=== PATIENT | male | born 1990 | race Caucasian/White ===

== ENCOUNTER 2021-03-04 14:22 | Emergency (ER) | payer OTHER, SELFPAY ==
[2021-03-04 17:23] LABS: Basophils # (Auto) 0.2 K/mm3 (0.0-0.1); Basophils % (Auto) 1.9 % (0.0-1.8); Eosinophils # (Auto) 0.1 K/mm3 (0.0-0.4); Eosinophils % (Auto) 0.7 % (0.0-4.3); Hematocrit 46.9 % (35.5-45.6); Hemoglobin 16.1 gm/dl (11.8-15.2); Lymphocytes # (Auto) 1.4 K/mm3 (1.2-5.4); Lymphocytes % (Auto) 15.7 % (13.4-35.0); Mean Corpuscular HGB Conc 34 % (32-34); Mean Corpuscular Volume 91 fl (84-94); Monocytes # (Auto) 0.5 K/mm3 (0.0-0.8); Monocytes % (Auto) 6.1 % (0.0-7.3); Platelet Count 208 K/mm3 (140-440); Red Blood Count 5.14 M/mm3 (3.65-5.03); Red Cell Distribution Width 14.3 % (13.2-15.2)
[2021-03-04 17:30] LABS: Bilirubin,Urine NEG (Negative); Blood,Urine NEG (Negative); Color,Urine Amber (Yellow); Mucus,Urine 3+ /HPF; Protein,Urine <15 mg/dL mg/dL (Negative)
[2021-03-04 17:31] LABS: Amphetamine Screen,Urine Negative; Cocaine Screen,Urine Negative; Methadone Screen,Urine Negative; Opiate Screen,Urine Negative
[2021-03-04 17:42] LABS: Alanine Aminotransferase 14 units/L (7-56); Albumin 3.9 g/dL (3.9-5); BUN/Creatinine Ratio 15; Blood Urea Nitrogen 15 mg/dL (9-20); Calcium 8.7 mg/dL (8.4-10.2); Hemolysis Index 13
[2021-03-04 17:43] LABS: Benzodiazepines Screen,Urine Negative; Cannabinoid Screen,Urine Positive
--- NOTE | 2021-03-04 23:19 | Event Note ---
ED Screening Note ED Screening Note: AGITATED IN [facility]ING STATES MOM AND SISTER KILLED TODAY HE LEFT ER TO SEE DAUGHTER This initial assessment/diagnostic orders/clinical plan/treatment(s) is/are subject to change based on patients health status, clinical progression and re- assessment by fellow clinical providers in the ED. Further treatment and workup at subsequent clinical providers discretion. Patient/guardian urged not to elope from the ED as their condition may be serious if not clinically assessed and managed. Initial orders include: 1013 E
--- NOTE | 2021-03-05 01:47 | Emergency Department Report ---
HPI - HPI HPI: Room 4 The patient is a 30-year-old male present with a chief complaint of suicidal ideation. The patient states she is felt suicidal for the past 2 days. Patient states there are 2 recent deaths in his family. Patient also states for the past 2 months he has had auditory hallucinations with voices telling him to do things such as sitting in the middle of her [place] to be hit by a bus. The patient states he did attempt to do this but was cussed out by his sister. The patient states approximately 3 nights ago intentionally overdosed on 12 Tylenol (dosage unknown) and two "Percocet tens." Patient now only complains of a headache and hunger <EDITH CORDOVA - Last Filed: 03/05/21 04:03> <JESSIE TATUM - Last Filed: 03/05/21 13:04> - General Chief Complaint: Psych Time Seen by Provider: 03/04/21 23:18 ED Past Medical Hx - Past Medical History Previous Medical History?: No Hx Psychiatric Treatment: Yes (Depression) - Surgical History Past Surgical History?: No - Family History Family history: no significant - Social History Smoking Status: Current Every Day Smoker (1/2 pack/day) Substance Use Type: Alcohol (Occasional), Marijuana <EDITH CORDOVA - Last Filed: 03/05/21 04:03> <JESSIE TATUM - Last Filed: 03/05/21 13:04> - Medications Home Medications: Home Medications Medication Instructions Recorded Confirmed Last Taken Type ARIPiprazole [Abilify TAB] 2 mg PO DAILY #30 tab 03/05/21 Unknown Rx ED Review of Systems ROS: Stated complaint: SI Other details as noted in HPI Constitutional: no symptoms reported Eyes: denies: eye pain ENT: denies: throat pain Respiratory: no symptoms reported Cardiovascular: denies: chest pain Endocrine: no symptoms reported Gastrointestinal: other (Hunger). denies: abdominal pain Genitourinary: denies: dysuria Musculoskeletal: denies: back pain Neurological: headache Psychiatric: auditory hallucinations, suicidal thoughts <EDITH CORDOVA - Last Filed: 03/05/21 04:03> ROS: Stated complaint: SI Other details as noted in HPI <JESSIE TATUM - Last Filed: 03/05/21 13:04> Physical Exam - Physical Exam Vital Signs: Vital Signs 03/04/21 16:05 Temperature 98.3 F Pulse Rate 51 L Respiratory 18 Rate Blood Pressure 117/76 [Right] O2 Sat by Pulse 100 Oximetry Physical Exam: GENERAL: The patient is well-developed well-nourished male lying on stretcher not appearing to be in acute distress. [] HEENT: Normocephalic. Atraumatic. Extraocular motions are intact. Patient has moist mucous membranes. NECK: Supple. Trachea midline CHEST/LUNGS: Clear to auscultation. There is no respiratory distress noted. HEART/CARDIOVASCULAR: Regular. There is no tachycardia. There is no gallop rub or murmur. ABDOMEN: Abdomen is soft, nontender. Patient has normal bowel sounds. There is no abdominal distention. SKIN: There is no rash. There is no edema. There is no diaphoresis. NEURO: The patient is awake, alert, and oriented. The patient is cooperative. The patient has no focal neurologic deficits. The patient has normal speech MUSCULOSKELETAL: There is no evidence of acute injury. <EDITH CORDOVA - Last Filed: 03/05/21 04:03> - Physical Exam Vital Signs: Vital Signs 03/04/21 03/05/21 03/05/21 16:05 01:53 05:53 Temperature 98.3 F Pulse Rate 51 L 52 L Respiratory 18 18 16 Rate Blood Pressure 117/76 108/62 [Right] O2 Sat by Pulse 100 100 97 Oximetry <JESSIE TATUM - Last Filed: 03/05/21 13:04> ED Course Vital Signs 03/04/21 16:05 Temperature 98.3 F Pulse Rate 51 L Respiratory 18 Rate Blood Pressure 117/76 [Right] O2 Sat by Pulse 100 Oximetry - Consultations Consultation #1: 03/05/21 01:46 Poison control called 03/05/21 01:52 Case discussed with poison control- may be cleared from tox standpoint on Tylenol overdose <EDITH CORDOVA - Last Filed: 03/05/21 04:03> Vital Signs 03/04/21 03/05/21 03/05/21 16:05 01:53 05:53 Temperature 98.3 F Pulse Rate 51 L 52 L Respiratory 18 18 16 Rate Blood Pressure 117/76 108/62 [Right] O2 Sat by Pulse 100 100 97 Oximetry - Reevaluation(s) Reevaluation #1: 03/05/21 13:02 Psychiatric Consult Note Patient Name: HAN DENIS Date of : 88 Patient Status: Emergency Emergency Provider: EDITH CORDOVA Date: 03/05/21 11:32 Initialization Date: 03/05/21 11:32 History of Present Illness - Reason for Consult Consult date: 03/05/21 Reason for consult: SI - History of Present Psychiatric Illness Per ER Note: The patient is a 30-year-old male present with a chief complaint of suicidal ideation. The patient states he is felt suicidal for the past 2 days. Patient states there are 2 recent deaths in his family. Patient also states for the past 2 months he has had auditory hallucinations with voices telling him to do things such as sitting in the middle of her [place] to be hit by a bus. The patient states he did attempt to do this but was cussed out by his sister. The patient states approximately 3 nights ago intentionally overdosed on 12 Tylenol (dosage unknown) and two "Percocet tens." Patient now only complains of a headache and hunger. Han Denis is a 30y/o male patient who presented to the ER for suicidal ideation. He is calm, cooperative. He is lucid. The patient states to me that he has been feeling suicidal "all my life." He says "since I was about 25 years old." He denies then being any worse today. He says he was and lost his Mother and his niece. The patient says he has three children. The patient says he hears things where "I think I'm tripping." He was unable to tell the nature of the hallucinations. The patient says he was diagnosed with depression and schizophrenia. He denies being on any psych meds. He says he does "some percs, weed and alcohol." He says he took several tylenols the other day but his urine screen does not show this. The patient describes his mood as "okay." He says he's "trying to get back to [place] and trying to get his money up to go back." The patient states, "I stay sleep cause I'm trying to sleep it off." PAST PSYCHIATRIC HISTORY: Diagnoses: Depression, schizophrenia Suicide attempts or Self-harm behavior: Denies Prior psychiatric hospitalizations: Yes Substance Abuse history: "percs and weed" Previous psychiatric medications tried: Denies Outpatient treatment: Denies PAST MEDICAL HISTORY: None reported Family Psychiatric History: None reported or documented SOCIAL HISTORY Marital Status: Living Arrangements: was living in a correction Employment Status: Unemployed Access to guns/weapons: Denies Education: Some high school History of Abuse: None reported Legal History: None reported REVIEW OF SYSTEMS Constitutional: Negative for weight loss ENT: Negative for stridor Respiratory: Negative for cough or hemoptysis All other systems reviewed and are negative MENTAL STATUS EXAMINATION General Appearance and Behavior: Age appropriate, good hygiene, wearing appropriate clothes, good eye contact, calm, cooperative Cooperation: cooperative, engaging Psychomotor Behavior: Psychomotor normal Mood: "okay" Affect and affective range: congruent with stated mood Thought Process: goal directed Thought Content: Speech: increased tone and pace Suicidal Ideation: yes, "since he's been about 25" Homicidal Ideation: Denies Impulse Control: Unimpaired Insight and Judgment: Limited insight and judgment Memory: Normal Attention: Undivided attention impaired Orientation: a/o x 3 Assessment and Plan (1) Hx of Schizophrenia Current Visit: Yes Status: Acute Treatment Plan d/c 1013 Start Abilify 2mg po daily Sitter: Defer to primary Medical: Per primary Disposition: Do not recommend acute psychiatric inpatient treatment. The patient understands that if suicidal thoughts gets worse he is to seek immediate assistance including 911/ER or crisis hotline The greenskeeper head is to give the patient's resources outpatient psych, for med management, CBT, shelters. The patient is to follow up with outpatient psych in 7 to 14 days upon discharge Lanolin Plant Operator is to further discuss safety plan with the patient. Will sign off. Thank you for this consult. Case staffed with Dr. Power Reevaluation #2: 03/05/21 13:02 Patient is a 30-year-old gentleman who states that he has had suicidal thoughts for multiple years. States he is no worse than normal. He is been seen by her mental health team and has been medically cleared. Patient given prescriptions for his depression and discharged home. <JESSIE TATUM - Last Filed: 03/05/21 13:04> ED Medical Decision Making - Lab Data Result diagrams: 03/04/21 16:56 03/04/21 16:56 Laboratory Tests 03/04/21 03/04/21 03/04/21 16:56 16:56 16:56 WBC 8.7 RBC 5.14 H Hgb 16.1 H Hct 46.9 H MCV 91 MCH 31 MCHC 34 RDW 14.3 Plt Count 208 Lymph % (Auto) 15.7 [place] % (Auto) 6.1 Eos % (Auto) 0.7 Baso % (Auto) 1.9 H Lymph # (Auto) 1.4 [place] # (Auto) 0.5 Eos # (Auto) 0.1 Baso # (Auto) 0.2 H Seg Neutrophils % 75.6 H Seg Neutrophils # 6.6 PT INR APTT Sodium 139 Potassium 4.3 Chloride 101.7 Carbon Dioxide 30 Anion Gap 12 BUN 15 Creatinine 1.0 Estimated GFR > 60 BUN/Creatinine Ratio 15 Glucose 88 Calcium 8.7 Total Bilirubin 0.50 AST 17 ALT 14 Alkaline Phosphatase 64 Total Protein 6.1 L Albumin 3.9 Albumin/Globulin Ratio 1.8 Urine Color Urine Turbidity Urine pH Ur Specific Ebro Urine Protein Urine Glucose (UA) Urine Ketones Urine Blood Urine Nitrite Urine Bilirubin Urine Urobilinogen Ur Leukocyte Esterase Urine WBC (Auto) Urine RBC (Auto) Urine Mucus Salicylates < 0.3 L Urine Opiates Screen Urine Methadone Screen Acetaminophen Ur Barbiturates Screen Ur Phencyclidine Scrn Ur Amphetamines Screen U Benzodiazepines Scrn Urine Cocaine Screen U Marijuana (THC) Screen Drugs of Abuse Note Plasma/Serum Alcohol 03/04/21 03/04/21 03/04/21 16:56 Unknown Unknown WBC RBC Hgb Hct MCV MCH MCHC RDW Plt Count Lymph % (Auto) [place] % (Auto) Eos % (Auto) Baso % (Auto) Lymph # (Auto) [place] # (Auto) Eos # (Auto) Baso # (Auto) Seg Neutrophils % Seg Neutrophils # PT INR APTT Sodium Potassium Chloride Carbon Dioxide Anion Gap BUN Creatinine Estimated GFR BUN/Creatinine Ratio Glucose Calcium Total Bilirubin AST ALT Alkaline Phosphatase Total Protein Albumin Albumin/Globulin Ratio Urine Color Marissa Urine Turbidity Clear Urine pH 6.0 Ur Specific Ebro 1.025 Urine Protein <15 mg/dl Urine Glucose (UA) Neg Urine Ketones Neg Urine Blood Neg Urine Nitrite Neg Urine Bilirubin Neg Urine Urobilinogen 4.0 Ur Leukocyte Esterase Neg Urine WBC (Auto) 1.0 Urine RBC (Auto) 2.0 Urine Mucus 3+ Salicylates Urine Opiates Screen Negative Urine Methadone Screen Negative Acetaminophen 5.0 L Ur Barbiturates Screen Negative Ur Phencyclidine Scrn Negative Ur Amphetamines Screen Negative U Benzodiazepines Scrn Negative Urine Cocaine Screen Negative U Marijuana (THC) Screen Positive Drugs of Abuse Note Disclamer Plasma/Serum Alcohol 03/05/21 03/05/21 01:44 02:20 WBC RBC Hgb Hct MCV MCH MCHC RDW Plt Count Lymph % (Auto) [place] % (Auto) Eos % (Auto) Baso % (Auto) Lymph # (Auto) [place] # (Auto) Eos # (Auto) Baso # (Auto) Seg Neutrophils % Seg Neutrophils # PT 16.7 H INR 1.30 H APTT 30.5 Sodium Potassium Chloride Carbon Dioxide Anion Gap BUN Creatinine Estimated GFR BUN/Creatinine Ratio Glucose Calcium Total Bilirubin AST ALT Alkaline Phosphatase Total Protein Albumin Albumin/Globulin Ratio Urine Color Urine Turbidity Urine pH Ur Specific Ebro Urine Protein Urine Glucose (UA) Urine Ketones Urine Blood Urine Nitrite Urine Bilirubin Urine Urobilinogen Ur Leukocyte Esterase Urine WBC (Auto) Urine RBC (Auto) Urine Mucus Salicylates Urine Opiates Screen Urine Methadone Screen Acetaminophen Ur Barbiturates Screen Ur Phencyclidine Scrn Ur Amphetamines Screen U Benzodiazepines Scrn Urine Cocaine Screen U Marijuana (THC) Screen Drugs of Abuse Note Plasma/Serum Alcohol < 0.01 - Differential Diagnosis Suicidal ideation <EDITH CORDOVA - Last Filed: 03/05/21 04:03> - Lab Data Result diagrams: 03/04/21 16:56 03/04/21 16:56 <JESSIE TATUM - Last Filed: 03/05/21 13:04> Critical care attestation.: If time is entered above; I have spent that time in minutes in the direct care of this critically ill patient, excluding procedure time. <EDITH CORDOVA - Last Filed: 03/05/21 04:03> Critical care attestation.: If time is entered above; I have spent that time in minutes in the direct care of this critically ill patient, excluding procedure time. <JESSIE TATUM - Last Filed: 03/05/21 13:04> ED Disposition Is pt being admited?: No Does the pt Need Aspirin: No <EDITH CORDOAV - Last Filed: 03/05/21 04:03> Time of Disposition: 13:03 <JESSIE TATUM - Last Filed: 03/05/21 13:04> Clinical Impression: Suicidal ideation, Auditory hallucinations, Passive suicidal ideations Disposition: DC-01 TO HOME OR SELFCARE Condition: Stable Additional Instructions: CRISIS RESOURCES [place] Crisis Line: Suicide Prevention Line: Emergency: 911 [facility]: Please follow up with [facility] [place] [facility] for outpatient mental health follow up: . [facility] [address] [place] [id number] If you are interested in a program, please contact [facility], or [facility] [phone] more information and to assess next steps. Regular program admission occurs Tuesday through Tuesday at 7:00 amand operates on a first come, first serve basis.Because we cant anticipate program availability in advance andprogram spots are in high demand, we recommend arriving early. Space fills up fast! [facility] from Homeless[facility] ([facility]) provides services for men experiencing homelessness and who have severe and persisted mental illness. PATH partners are [facility], [facility], and [facility]. [facility] from Homelessness ([facility]) Outreach Program assists unsheltered persons by engaging them where they are located, ensuring they access any treatment they need. Prescriptions: ARIPiprazole [Abilify TAB] 2 mg PO DAILY #30 tab Referrals: PRIMARY CARE, [Primary Care Provider] - 3-5 Days
[2021-03-05 02:13] LABS: INR 1.3 (0.87-1.13); Partial Thromboplastin Time 30.5 Sec. (24.2-36.6)
[2021-03-05 05:53] VITALS: BP 108/62
--- NOTE | 2021-03-05 11:32 | Consultation ---
History of Present Illness - Reason for Consult Consult date: 03/05/21 Reason for consult: SI - History of Present Psychiatric Illness Per ER Note: The patient is a 30-year-old male present with a chief complaint of suicidal ideation. The patient states he is felt suicidal for the past 2 days. Patient states there are 2 recent deaths in his family. Patient also states for the past 2 months he has had auditory hallucinations with voices telling him to do things such as sitting in the middle of her [place] to be hit by a bus. The patient states he did attempt to do this but was cussed out by his sister. The patient states approximately 3 nights ago intentionally overdosed on 12 Tylenol (dosage unknown) and two "Percocet tens." Patient now only complains of a headache and hunger. Han Denis is a 30y/o male patient who presented to the ER for suicidal ideation. He is calm, cooperative. He is lucid. The patient states to me that he has been feeling suicidal "all my life." He says "since I was about 25 years old." He denies then being any worse today. He says he was and lost his Mother and his niece. The patient says he has three children. The patient says he hears things where "I think I'm tripping." He was unable to tell the nature of the hallucinations. The patient says he was diagnosed with depression and schizophrenia. He denies being on any psych meds. He says he does "some percs, weed and alcohol." He says he took several tylenols the other day but his urine screen does not show this. The patient describes his mood as "okay." He says he's "trying to get back to [place] and trying to get his money up to go back." The patient states, "I stay sleep cause I'm trying to sleep it off." PAST PSYCHIATRIC HISTORY: Diagnoses: Depression, schizophrenia Suicide attempts or Self-harm behavior: Denies Prior psychiatric hospitalizations: Yes Substance Abuse history: "percs and weed" Previous psychiatric medications tried: Denies Outpatient treatment: Denies PAST MEDICAL HISTORY: None reported Family Psychiatric History: None reported or documented SOCIAL HISTORY Marital Status: Living Arrangements: was living in a halfway Employment Status: Unemployed Access to guns/weapons: Denies Education: Some high school History of Abuse: None reported Legal History: None reported REVIEW OF SYSTEMS Constitutional: Negative for weight loss ENT: Negative for stridor Respiratory: Negative for cough or hemoptysis All other systems reviewed and are negative MENTAL STATUS EXAMINATION General Appearance and Behavior: Age appropriate, good hygiene, wearing appropriate clothes, good eye contact, calm, cooperative Cooperation: cooperative, engaging Psychomotor Behavior: Psychomotor normal Mood: "okay" Affect and affective range: congruent with stated mood Thought Process: goal directed Thought Content: Speech: increased tone and pace Suicidal Ideation: yes, "since he's been about 25" Homicidal Ideation: Denies Impulse Control: Unimpaired Insight and Judgment: Limited insight and judgment Memory: Normal Attention: Undivided attention impaired Orientation: a/o x 3 Assessment and Plan (1) Hx of Schizophrenia Current Visit: Yes Status: Acute Treatment Plan d/c 1013 Start Abilify 2mg po daily Sitter: Defer to primary Medical: Per primary Disposition: Do not recommend acute psychiatric inpatient treatment. The patient understands that if suicidal thoughts gets worse he is to seek immediate assistance including 911/ER or crisis hotline The concrete stone fabricator is to give the patient's resources outpatient psych, for med management, CBT, shelters. The patient is to follow up with outpatient psych in 7 to 14 days upon discharge Adult Crossing Guard is to further discuss safety plan with the patient. Will sign off. Thank you for this consult. Case staffed with Dr. Power Medications and Allergies Allergies Allergy/AdvReac Type Severity Reaction Status Date / Time No Known Allergies Allergy Unverified 03/04/21 16:03 Home Medications Medication Instructions Recorded Confirmed Last Taken Type ARIPiprazole [Abilify TAB] 2 mg PO DAILY #30 tab 03/05/21 Unknown Rx Mental Status Exam - Vital signs Last Vital Signs Temp 98.3 F 03/04/21 16:05 Pulse 52 L 03/05/21 05:53 Resp 16 03/05/21 05:53 BP 108/62 03/05/21 05:53 Pulse Ox 97 03/05/21 05:53 Results Result Diagrams: 03/04/21 16:56 03/04/21 16:56 Abnormal lab results 03/04/21 03/04/21 03/04/21 Range/Units 16:56 16:56 16:56 RBC 5.14 H (3.65-5.03) M/mm3 Hgb 16.1 H (11.8-15.2) gm/dl Hct 46.9 H (35.5-45.6) % Baso % (Auto) 1.9 H (0.0-1.8) % Baso # (Auto) 0.2 H (0.0-0.1) K/mm3 Seg Neutrophils % 75.6 H (40.0-70.0) % PT (12.2-14.9) Sec. INR (0.87-1.13) Total Protein 6.1 L (6.3-8.2) g/dL Salicylates < 0.3 L (2.8-20.0) mg/dL Acetaminophen (10.0-30.0) ug/mL 03/04/21 03/05/21 Range/Units 16:56 01:44 RBC (3.65-5.03) M/mm3 Hgb (11.8-15.2) gm/dl Hct (35.5-45.6) % Baso % (Auto) (0.0-1.8) % Baso # (Auto) (0.0-0.1) K/mm3 Seg Neutrophils % (40.0-70.0) % PT 16.7 H (12.2-14.9) Sec. INR 1.30 H (0.87-1.13) Total Protein (6.3-8.2) g/dL Salicylates (2.8-20.0) mg/dL Acetaminophen 5.0 L (10.0-30.0) ug/mL All other labs normal.
== END 2021-03-05 13:14 | disposition home or self-care (01) ==
LOC: ED 14:22 → EEVIPCON 14:22 → ED 03-05 13:14
DX: R45.851 Suicidal ideations (principal); Z20.822 Contact with and (suspected) exposure to COVID-19; R44.0 Auditory hallucinations; R79.1 Abnormal coagulation profile; F32.9 Major depressive disorder, single episode, unspecified; F17.200 Nicotine dependence, unspecified, uncomplicated; Z72.89 Other problems related to lifestyle; Z79.899 Other long term (current) drug therapy
CPT/HCPCS: 36415; 80053; 80307; 81001; 85025; 85610; 85730; 99284; U0003; 80320; G0480